=== PATIENT | male | born 2005 | race Caucasian/White ===

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

== ENCOUNTER → 2025-01-12 | Outpatient (CLI) | payer MEDICAID, OTHER ==
[2025-01-12 15:00] LABS: PLATELET COUNT, AUTOMATED 358 10^3/uL (150-450)
[2025-01-12 15:09] LABS: ERYTHROCYTE SEDIMENTATION RATE 26 mm/hr (0-15)
[2025-01-12 15:27] LABS: C REACTIVE PROTEIN QUANTITATIV < 0.50 MG/DL (<1.0)
[2025-01-12 15:28] LABS: ALT/SGPT 15 U/L (7.0-40); AST/SGOT 17 U/L (<34); CALCIUM LEVEL 9.1 MG/DL (8.5-10.1); CARBON DIOXIDE LEVEL 30 MMOL/L (20-31); CHLORIDE LEVEL 106 MMOL/L (98-107); CREATININE FOR GFR 0.82 MG/DL (0.70-1.30); GLOMERULAR FILTRATION RATE > 90.0 (>60); POTASSIUM SERUM 4.0 MMOL/L (3.5-5.1); SODIUM LEVEL 145 MMOL/L (136-145)
[2025-01-12 15:54] LABS: HIV 1&2 SCREEN NEGATIVE (NEGATIVE)
== END ==
LOC: M LAB 14:06
PROVIDERS: ATTEND Student in an Organized Health Care Education/Training Program
DX: Z87.19 Personal history of other diseases of the digestive system (principal); K50.80 Crohn's disease of both small and large intestine without complications